=== PATIENT | female | born 1975 | race Caucasian/White ===

== ENCOUNTER 2025-04-30 12:59 | Outpatient (AMB) | payer BC, SELFPAY ==
--- NOTE | 2025-04-30 13:03 | MHC.OFFVIS ---
Vital Signs 04/30/25 13:04 Height 5 ft 7 in Weight 164 lb 10.965 oz BMI 25.8 BP 100/64 Blood Pressure Location Lt brachial Position Sitting Pulse 74 Pulse Source Pulse Oximeter Pulse Oximetry (%) 99 Oxygen Delivery Method Room Air Intake Visit Reasons: Nontoxic single thyroid nodule Intake Note: New patient present today for Nontoxic single thyroid nodule. Cook Box Filler Required: No Accompanied by: Self / Same As Patient Allergies Penicillins (PCN) Allergy (Mild, Verified 04/30/25 13:07) rash Sulfa (Sulfonamide Antibiotics) Allergy (Mild, Verified 04/30/25 13:07) rash Medication List - Last Reconciled 04/30/25 by Brigette Plunkett MD sertraline 50 mg PO DAILY valacyclovir 1,000 mg PO DAILY HPI Comments Details: 49-year-old female coming in today for initial evaluation of nontoxic multinodular goiter. Ultrasound of the thyroid, done 04/05/2025, I do not have the images but reviewed the report which showed a right mid lobe 1.3 cm solid isoechoic TR 3 nodule, and a left lower pole 1.1 cm solid hypoechoic taller than wide with irregular margin TR 5 category nodule that meets criteria for FNA. Patient currently denies heat or cold intolerance, diarrhea or constipation, hair loss, palpitation, anxiety, mood changes, low energy, changes in appearance of eyes or vision changes, tremors, increased diaphoresis or dry skin. Gained 10 lbs in 6 months. ? Patient denies any difficulty swallowing, pain on swallowing or voice changes or difficulty breathing. Patient denies any history of childhood neck radiation. Denies having ever used lithium, amiodarone or biotin supplements. Patient denies any family history of thyroid cancer or thyroid disease. Teacher 8 th grade special ed No smoking Alcohol : a glass or two of wine everyday No drug use Physical exam General: sitting comfortably in no acute distress HEENT: normocephalic/atraumatic, moist oral mucosa Neck: supple, palpable 1 cm right-sided nodule Cardiac: normal heart sounds Pulm: normal breath sounds B/L, no added breath sounds Abd: not distended, no tenderness Extremities: no edema, no signs of myxedema Labs done at [facility] ob[facility] viewed on patient's portal tsh 1.16 PFS Medical History (Updated 04/30/25 @ 13:15 by Brigette Plunkett MD) Nontoxic multinodular goiter Surgical History (Updated 04/30/25 @ 13:09 by CLARISA Hanley) History of surgical procedure on eye proper using laser History of back surgery History of breast augmentation Family History (Updated 04/30/25 @ 13:09 by CLARISA Hanley) Mother Breast cancer Father No problems noted. Social History (Updated 04/30/25 @ 13:10 by CLARISA Hanley) Alcohol intake: current Alcohol intake frequency: 0-2 drinks per day Alcohol type: wine Patient Tobacco Use Status: Never used Tobacco Physical Exam Vital Signs: Last Vital Signs Pulse 74 04/30/25 13:04 BP 100/64 04/30/25 13:04 Pulse Ox 99 04/30/25 13:04 Oxygen Delivery Method Room Air 04/30/25 13:04 BMI result Body Mass Index 25.8 Assessment & Plan Assessment & Plan (1) Nontoxic multinodular goiter: Code(s): E04.2 - Nontoxic multinodular goiter Category: Medical Plan: 49-year-old female with no family history of thyroid cancer with no personal history of head or neck radiation coming in today for initial evaluation of nontoxic multinodular goiter. Ultrasound of the thyroid, done 04/05/2025, I do not have the images but reviewed the report which showed a right mid lobe 1.3 cm solid isoechoic TR 3 nodule, and a left lower pole 1.1 cm solid hypoechoic taller than wide with irregular margin TR 5 category nodule that meets criteria for FNA. I explained that it is common to have thyroid nodules. About 95% of the time these nodules are benign. However if the nodule is > 1 cm in size or suspicious on ultrasound then a fine need aspiration biopsy is recommended. We discussed that a FNAB involves 4-5 passes with a small gauge needle and material obtained is sent off for cytology.If the cytopathology is benign then the nodule will be followed annually with repeat ultrasounds. However if it is suspicious or malignant, we will need to discuss further management. Indeterminate cytology can be further investigated with repeat FNA, genetic testing or empiric lobectomy. Malignant cytology is managed with either lobectomy or total thyroidectomy. We discussed briefly that thyroid cancer is, in most patients, an indolent disease that does not affect mortality. We will arrange for FNA left lower 1.1 cm thyroid nodule at next available opening and patient will follow up with me in clinic thereafter for results and further decision making. No compressive symptoms. Labs done at [facility] ob[facility]yn viewed on patient's portal tsh 1.16 Plan: -scheduled for FNA of the left lower 1.1 cm thyroid nodule and a follow up 2 weeks after to discuss results Plan I spent 45 minutes in reviewing the record, seeing the patient and documenting in the medical record. Orders: Orders US biopsy thyroid Today E04.2 - Nontoxic multinodular goiter Patient Instructions: We will schedule you for a left-sided thyroid nodule biopsy and a follow up 2 weeks after the biopsy to discuss results Coding Level of Care Code New Pt Level 4 (58854) Diagnoses Nontoxic multinodular goiter E04.2 Time Spent (min) 45
[2025-04-30 13:04] VITALS: BP 100/64; PULSE 74; O2SAT 99; BMI 25.8
--- OUTSIDE RECORDS SUMMARY | 2025-04-30 13:22 | XMS_ITS | Data Portability ---
Author Organization [place] [facility] Crista Guillermo [address] [place] Address [address] [place] [address] Care Team Providers Care Digital Hardware Design Engineer Name Role Phone ARNULFO CASTILLO Primary Care Provider ARNULFO CASTILLO Referring Provider [phone] Assessment Encounter Date Assessment Date Assessment LastModified by Organization Details LastModified Time 01/08/2025 01/08/2025 About a year of nonspecific right anterior knee pain. I suspect this is patellofemoral in origin, she may have fat pad impingement or medial plica. I think less likely would be a meniscus tear. I went over my findings with her at length. I reviewed treatment options. She is very active, already has completed and remain compliant with a strengthening program. I doubt that physical therapy will provide meaningful benefit. She is interested in an MRI and I think that is reasonable to pursue. I will see her back to go over the results. In the interim she will let symptoms be her guide with regards to activity. Questions invited and answered. Not available 01/08/2025 20:04:53 01/29/2025 01/29/2025 I reviewed my findings with her. We looked at the MRI together. Thankfully no evidence of any obvious significant meniscal tear. I think most likely she is having some anterior knee pain related to her mild retropatellar chondrosis, fat pad impingement, and potentially plica syndrome. I went over all of this with her. We decided on treating conservatively starting with physical therapy. If no improvement could consider a cortisone injection. Last option would be an arthroscopy with chondroplasty, fat pad debridement, plica resection. She will let symptoms be her guide with regards to activity moving forward. Icing protocol reviewed. We will leave follow-up open-ended for the moment, she knows I am available to her if questions arise. Greater than 30 minutes was spent with the encounter today, including face to face time with the patient, documentation, review of records/imaging if applicable, and coordination of care. PRIOR: About a year of nonspecific right anterior knee pain. I suspect this is patellofemoral in origin, she may have fat pad impingement or medial plica. I think less likely would be a meniscus tear. I went over my findings with her at length. I reviewed treatment options. She is very active, already has completed and remain compliant with a strengthening program. I doubt that physical therapy will provide meaningful benefit. She is interested in an MRI and I think that is reasonable to pursue. I will see her back to go over the results. In the interim she will let symptoms be her guide with regards to activity. Questions invited and answered. [email or web address] Not available 01/29/2025 17:24:18 Plan of Treatment Reminders Order Date Submit Date Provider Last Modified By Organization Details Last Modified Time Details Appointments None recorded. Lab None recorded. Referral None recorded. Procedures None recorded. Surgeries None recorded. Imaging XR, knee, 3 view 2024 025 [email or web address] [facility], [address], [address] [facility], [place], [address], 17:38:54 MRI, knee, w/o contrast 2024 025 [email or web address] Not available 11:55:26 Medication Orders None recorded. Patient TargetsNo targets recorded. Patient Instructions Encounter Date Encounter Id Patient Instructions Last Modified By Organization Details Last Modified Time 01/08/2025 [id number] views of the right knee were obtained on 01/08/2025 in the [place] office. Patella tracks centrally. Joint spaces are well-maintained. No obvious soft tissue calcifications. Findings: Well-maintained joint spaces right knee. No acute fracture appreciated. Interpreted by: MD daysi [email or web address] Not available 01/08/2025 14:26:46 01/29/2025 [id number] views of the right knee were obtained on 01/08/2025 in the [place] office. Patella tracks centrally. Joint spaces are well-maintained. No obvious soft tissue calcifications. Findings: Well-maintained joint spaces right knee. No acute fracture appreciated. Interpreted by: Jagdeep Farley MD Not available 01/28/2025 16:56:28 Reason for Referral None Reported. Results Created Date Observation Date Name Description Value Unit Range Abnormal Flag Note LastModifiedBy Organization Detail LastModifiedTime 01/20/2001/17/2025 MRI, knee, w/o contr ast No observ ation record ed. [email or web address] [facility] [address] [place], [address], 01/20/2025 11:00:12 Result Notes None recorded. Problems Name Problem SNOMED Code Status Onset Date Resolution Date Notes Provider Name and Address Organization Details Recorded Time Pain of right knee joint 195978780019501 Active 2024 Jagdeep Farley MD [address], [place], [address], [place] [facility] 16:56:27 Synovial plica syndrome of right knee 333727314502775 Active 2024 Jagdeep Farley MD [address], [place], [address], [place] [facility] 17:24:25 Problem Notes None recorded. Procedures Surgical History Date Name Laterality Status Provider Name and Address Organization Details Recorded Time augmentation mammoplasty completed [facility] 01/08/2025 14:15:08 [facility] 01/08/2025 14:15:27 laser assisted in situ keratomileusis completed [facility] 01/08/2025 14:16:10 Imaging Results None recorded. Procedure Notes None recorded. Medical Equipment None Reported. Allergies Allergen ID Allergen Name Allergen Category Reaction Reaction Severity Criticality Documentation Date Start Date Code Code System Note Provider Name and Address Organization Details Recorded Time 65655 Substance with sulfonami de structure and antibacte rial mechanism of action (substanc e) medicatio n Not available Not available Not available 01/08/2025 66737 8003 SNOMED Ana Gee null, [place] [facility] 14:13:07 97668 Product containin g penicilli n (product) medicatio n Not available Not available Not available 01/08/2025 89584 8001 SNOMED Ana Gee null, [place] [facility] 14:13:14 Medications Name Sig Start Date Stop Date Status Note LastModified by Organization Details LastModified Time valacyclovir 1 gram tablet TAKE 1 TABLET BY MOUTH EVERY DAY active Not Available Not Available No t Available sertraline 50 mg tablet TAKE 1 TABLET BY MOUTH EVERY DAY active Not Available Not Available No t Available Vitals Date Recorded Body height Body mass index (BMI) Body weight Provider Name and Address Organization Details Last Updated DateTime 01/08/2025 170.18 cm 24.7 kg/m2 [address] [place] [facility] 01/08/2025 14:13:25 Date Recorded Body height Body mass index (BMI) Body weight Provider Name and Address Organization Details Last Updated DateTime 01/29/2025 170.18 cm 24.9 kg/m2 [address]2798.[address] [place] [facility] 01/29/2025 16:05:03 Social History None recorded. Functional Status Question Answer Note LastModified by Organizat ion Details LastModified Time How many times per week do you consume alcohol? 7-12 [email or web address] Information not available 01/08/2025 Do you use any illicit or recreational drugs? No [email or web address] Information not available 01/08/2025 Do you or have you ever used any other forms of tobacco or nicotine? No [email or web address] Information not available 01/08/2025 What is your level of alcohol consumption? Heavy [email or web address] Information not available 01/08/2025 Are you currently employed? Yes [email or web address] Information not available 01/08/2025 What is your occupation? teacher [email or web address] Information not available 01/08/2025 Mental Status None recorded. Family History Nothing Reported. Medical History Condition Response Coronary Artery Disease N Gout N Hyperthyroidism N MRSA N Blood Transfusion N Emphysema N Hypothyroidism N COPD N Depression N Pacemaker N Vascular Disease N Gastrointestinal Disease N Anxiety Disorder N Autoimmune disease N Arthritis N Cancer N Stroke N High Cholesterol N Neurologic Disorder N Liver Disease N Organ Transplant N Arrhythmia N Rheumatoid Arthritis N Fibromyalgia N Kidney Disease N Allergies/Hayfever N Adverse Reaction to Anesthesia N Thyroid Problems N Anemia N Brain Injury N Heart Attack ([place]) N Osteopenia N Diabetes N Bleeding Disorder N Seizures/Epilepsy N AIDS/HIV N Congestive Heart Failure (CHF) N Asthma N Amputation N Reflux/GERD N Sleep Apnea N Hepatitis N Aneurysm N Heart Disease N Pulmonary Embolism N Hypertension N Osteoporosis N Gynecological HistoryNo gynecological history recorded. Obstetrics History GPAL:G 0 P 0 0 0 0 Past Encounters Encounter ID Performer Location Encounter Start Date Encounter Closed Date Diagnosis/Indication Diagnosis SNOMED-CT Code Diagnosis ICD10 Code Diagnosis Note [id number] Jagdeep Farley MD [place] [address] 01/08/2025 13:58:42 01/08/2025 14:54:12 Pain of right knee joint 9806683814 27456 M25.561 [id number] Jagdeep Farley MD [place] [address] 01/29/2025 16:00:30 01/29/2025 16:22:05 Pain of right knee joint 6009641726 58718 M25.561 Synovial p lica syndrome of right knee 0121040480 55658 M67.51 Health Concerns Section Related Observation LastModified by Organization Detai ls LastModified Time None Recorded Concern Status LastModified by Organization Details LastModified Time None Recorded Advance Directives Directive None Recorded Payers Insurance Date Sequence Insurance Name Policy Number Policy Hunt Covered Member ID Hunt Member ID Guarantor Name 01/30/2025 1 [place] [id number] Nolvia Gan [id number] Nolvia Gan Notes Date Note Type Note Provider Name and Address Organization Details Recorded Time 01/08/2025 text/html Very pleasant 49-year-old female here for an evaluation of persistent right knee pain. This has been going on for at least a year. She tells me she has been very active over her life, a consistent runner for many years. This is predominantly on flat ground. She also does consistent weight training. About a year ago without specific trauma she began to develop sharp anterior knee pain with activity. This could be with running, playing tennis, or getting out of a sand trap while playing golf. She has had a couple episodes where she actually had to stop activity, but generally when it happens she is able to manage and just modify and push through. No significant swelling noted. She denies yokasta locking but does feel some mechanical catching. She denies radiating pain to the hip or ankle. She denies any contralateral symptoms. At times she notes a baseline ache around the knee. She has not had physical therapy. She has never had injections. She has not had imaging. She reports she is healthy. 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 Jagdeep Farley MD [address], [place], [address], [place] [facility] 01/08/2025 20:05:33 01/29/2025 text/html Patient returns for reevaluation of her right knee. She did have her MRI done and brings it in today for review. She reports that since her last visit she has had much less of the sharp shooting pain. In general she has been careful with activity. She played paddle this weekend and had some generalized discomfort in the knee but nothing that has kept her out of participating. PRIOR:Very pleasant 49-year-old female here for an evaluation of persistent right knee pain. This has been going on for at least a year. She tells me she has been very active over her life, a consistent runner for many years. This is predominantly on flat ground. She also does consistent weight training. About a year ago without specific trauma she began to develop sharp anterior knee pain with activity. This could be with running, playing tennis, or getting out of a sand trap while playing golf. She has had a couple episodes where she actually had to stop activity, but generally when it happens she is able to manage and just modify and push through. No significant swelling noted. She denies yokasta locking but does feel some mechanical catching. She denies radiating pain to the hip or ankle. She denies any contralateral symptoms. At times she notes a baseline ache around the knee. She has not had physical therapy. She has never had injections. She has not had imaging. She reports she is healthy. 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 Jagdeep Farley MD [address], [place], [address], [place] [facility] 01/29/2025 17:24:36 OBGyn Episode No OBEpisode recorded.
== END 2025-04-30 13:42 | disposition home or self-care (01) ==
LOC: HO.ENCR 13:00
PROVIDERS: Visit Provider Student in an Organized Health Care Education/Training Program
DX: E04.2 Nontoxic multinodular goiter (principal)
CPT/HCPCS: 99204

== ENCOUNTER 2025-05-23 08:01 | Outpatient (REF) | payer BC, SELFPAY ==
--- OUTSIDE RECORDS SUMMARY | 2025-05-23 08:04 | XMS_ITS | Data Portability ---
Author Organization [place] [facility] Crista Guillermo [facility] [place] Address [address] [place] [address] Care Team Providers Care Process Improvement Manager Name Role Phone ARNULFO CASTILLO Primary Care Provider [phone] ARNULFO CASTILLO Referring Provider Assessment Encounter Date Assessment Date Assessment LastModified [...] 3 view 2024 025 [email or web address] [facility], [address], [address] [facility], [place], [address], 17:38:54 MRI, knee, w/o contrast 2024 025 [email or web address] 2 Not available 11:55:26 Medication Orders None recorded. Patient TargetsNo targets recorded. Patient Instructions Encounter Date Encounter Id Patient Instructions Last Modified By Organization Details Last Modified Time 01/08/2025 [id number] views of the right knee were obtained on 01/08/2025 in the [place] office. Patella tracks centrally. Joint spaces are well-maintained. No obvious soft tissue calcifications. Findings: Well-maintained joint spaces right knee. No acute fracture appreciated. Interpreted by: MD daysi [email or web address] Not available 01/08/2025 14:26:46 01/29/2025 [id number] views of the right knee were obtained on 01/08/2025 in the [place] office. Patella tracks centrally. Joint spaces are [...] observ ation record ed. [email or web address] [facility] [address] [place], [address], 01/20/2025 11:00:12 Result Notes None recorded. Problems Name Problem SNOMED Code Status Onset Date Resolution Date Notes Provider Name and Address Organization Details Recorded Time Pain of right knee joint 420923533766376 Active 2024 Jagdeep Farley MD [address], [place], [address], [place] [facility] 16:56:27 Synovial plica syndrome of right knee 831506728552615 Active 2024 Jagdeep Farley MD [address], [place], [address], [place] [facility] 17:24:25 Problem Notes None recorded. Procedures Surgical History Date Name Laterality Status Provider Name and Address Organization Details Recorded Time augmentation mammoplasty completed [facility] 01/08/2025 14:15:08 procedure [facility] back [facility] 01/08/2025 14:15:27 laser assisted in situ keratomileusis completed [facility] 01/08/2025 14:16:10 Imaging Results None recorded. Procedure Notes None recorded. Medical Equipment None Reported. Allergies Allergen ID Allergen Name Allergen Category Reaction Reaction Severity Criticality Documentation Date Start Date Code Code System Note Provider Name and Address Organization Details Recorded Time 29702 Substance with sulfonami de structure and antibacte rial mechanism of action (substanc e) medicatio n Not available Not available Not available 01/08/2025 90297 8003 SNOMED Ana Gee null, [place] [facility] 14:13:07 85153 Product containin g penicilli n (product) medicatio n Not available Not available Not available 01/08/2025 40211 8001 SNOMED Ana Gee null, [place] [facility] 14:13:14 Medications Name Sig Start Date [...] Updated DateTime 01/08/2025 170.18 cm 24.7 kg/m2 [address]267.[address] [facility] 01/08/2025 14:13:25 Date Recorded Body height Body mass index (BMI) Body weight Provider Name and Address Organization Details Last Updated DateTime 01/29/2025 170.18 cm 24.9 kg/m2 [address]2596.[address] [facility] 01/29/2025 16:05:03 Social History None recorded. Functional Status Question Answer Note LastModified by Organizat ion Details LastModified Time How many times per week do you consume alcohol? 7-12 [email or web address] Information not available 01/08/2025 Do you use any illicit or recreational drugs? No [email or web address] Information not available 01/08/2025 Do you or have you ever used any other forms of tobacco or nicotine? No [email or web address] Information not available 01/08/2025 What is your level of alcohol consumption? Heavy [email or web address] Information not available 01/08/2025 Are you currently employed? Yes [email or web address] Information not available 01/08/2025 What is your occupation? teacher [email or web address] Information not available 01/08/2025 Mental Status None [...] Anemia N Brain Injury N Heart Attack ([place]) N Osteopenia N Diabetes N Bleeding Disorder [...] SNOMED-CT Code Diagnosis ICD10 Code Diagnosis Note [id number] Jagdeep Farley MD [place] [address] 01/08/2025 13:58:42 01/08/2025 14:54:12 Pain of right knee joint 8508656694 12932 M25.561 [id number] Jagdeep Farley MD [place] [address] 01/29/2025 16:00:30 01/29/2025 16:22:05 Pain of right knee joint 9894577709 23271 M25.561 Synovial p lica syndrome of right knee 7106018005 18475 M67.51 Health Concerns Section Related Observation LastModified by Organization Detai ls LastModified Time None Recorded Concern Status LastModified by Organization Details LastModified Time None Recorded Advance Directives Directive None Recorded Payers Insurance Date Sequence Insurance Name Policy Number Policy Hunt Covered Member ID Hunt Member ID Guarantor Name 01/30/2025 1 [place] [id number] Nolvia Gan [id number] Nolvia Gan Notes Date Note Type [...] 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 Jagdeep Farley MD [address], [place], [address], [place] [facility] 01/29/2025 17:24:36 OBGyn Episode No OBEpisode recorded.
--- OUTSIDE RECORDS SUMMARY | 2025-05-23 08:04 | XMS_ITS ---
Author Name [facility] Organization Unknown History of Medication Use Medication Directions Dispensed Refills Start Date End Date Stat us sertraline 50 mg tablet TAKE 1 TABLET BY MOUTH EVERY DAY active valacyclovir 1 gram tablet TAKE 1 TABLET BY MOUTH EVERY DAY active Allergies Allergen Reaction Severity Comment Documented Date Source Statu s PENICILLINS [facility] SULFA (SULFONAMIDE ANTIBIOTICS) [facility] Problems Problem Status Onset Date Problem Type Date of Resoluti on Source Synovial plica syndrome of right knee active 2025-01-29 ProblemAct [facility] Pain of right knee joint active 2025-01-28 ProblemAct [facility] Encounters Encounter Type Encounter Reason Primary Diagnosis Location Date Ambulatory [facility] [place] 01/30/2025 Ambulatory [facility] 01/29/2025 Ambulatory [facility] 01/29/2025 Ambulatory [facility] [place] 01/09/2025 Ambulatory [facility] 01/08/2025 Ambulatory [facility] [place] 01/08/2025 [facility]ulatory [facility] [place] 01/08/2025 Ambulatory [facility] [place] 01/08/2025 Ambulatory [facility] [place] 01/08/2025 Ambulatory [facility] 01/08/2025 Ambulatory [facility] 01/08/2025 Ambulatory [facility] 01/05/2025 Ambulatory [facility] 12/13/2024
--- NOTE | 2025-05-23 08:32 | PM.PROC ---
Brief Operative Note Date of procedure: 05/23/25 Pre-op diagnosis: left lower 1.1 cm thyroid nodule FNA biopsy Post-op diagnosis: same Procedure: THYROID FINE NEEDLE ASPIRATION PROCEDURE NOTE ? PROCEDURE PERFORMED: Ultrasound-guided FNA of thyroid nodule ? OPERATORS: Dr. Brigette Plunkett ? INDICATION: left lower 1.1 cm thyroid nodule FNA biopsy ; FNA performed to assess for malignancy ? DESCRIPTION OF PROCEDURE: The indications for FNA (to assess for malignancy) were reviewed with the patient in detail. Potential complications (e.g., bleeding, infection, damage to local structures, absence of clear diagnosis after FNA) were reviewed. Alternatives to FNA including conservative observation or surgery were described. The patient understood and agreed to proceed. This was documented by the signing of the written informed consent form. A time-out was performed to confirm the patient's identity and the site of planned FNA. The nodule of interest was identified using ultrasound (14 MHz linear array probe). The site of FNA was then draped in the usual fashion and carefully cleaned and prepared using alcohol swabs. The skin at the previously-identified site of needle insertion was iced and sprayed with numbing spray. Under ultrasound guidance, 4__ passes were performed using a 1.5-inch, 25-gauge needle, and sample was obtained via capillary action. The needle tip was clearly visualized to be within the nodule at the time of sampling for _4_ of _4_ passes The patient tolerated the procedure well. There were no immediate complications. A small adhesive bandage was applied, and the patient was advised to take acetaminophen (rather than NSAIDs) for any discomfort and to report any signs of inflammation/infection or marked swelling. IMPRESSION: Technically successful ultrasound-guided fine needle aspiration of left lower 1.1 cm thyroid nodule FNA biopsy . Notably the nodule is solid , hypoechoic , regular, not taller than wide but does have some punctate echogenic foci in it , consistent with TR 5. I also looked at her right thyroid lobe briefly which did not show any nodules. PLAN: The patient was advised that I will provide follow-up regarding the cytology result and any subsequent plans. Brigette Plunkett MD Endocrinology Attending Condition: stable Disposition: same day
== END 2025-05-23 08:02 | disposition home or self-care (01) ==
LOC: HO.US 08:01
PROVIDERS: PCP Nurse Practitioner Family; Visit Provider Student in an Organized Health Care Education/Training Program
DX: E04.2 Nontoxic multinodular goiter (principal)
CPT/HCPCS: 10005; 88173; 88305

== ENCOUNTER → 2025-05-23 08:01 | Outpatient (BNV) | payer BC, SELFPAY | PROVIDERS: PCP Nurse Practitioner Family; Visit Provider Student in an Organized Health Care Education/Training Program | DX: E04.1 Nontoxic single thyroid nodule (principal) | CPT/HCPCS: 10005 ==

== ENCOUNTER 2025-06-06 13:38 | Outpatient (AMB) | payer BC, SELFPAY ==
--- NOTE | 2025-06-06 13:39 | MHC.OFFVIS ---
Vital Signs 06/06/25 13:40 Height 5 ft 7 in Weight 165 lb 5.547 oz BMI 25.9 BP 112/68 Blood Pressure Location Rt brachial Position Sitting Pulse 67 Pulse Source Pulse Oximeter Pulse Oximetry (%) 96 Oxygen Delivery Method Room Air Intake Visit Reasons: Biopsy f/u Intake Note: Patient present today for Thyroid Biopsy Results. 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 Ultrasound of the thyroid, done 04/05/2025, I do not have the images but reviewed the report which showed a right mid lobe 1.3 cm solid isoechoic TR 3 nodule, and a left lower pole 1.1 cm solid hypoechoic taller than wide with irregular margin TR 5 category nodule that meets criteria for FNA. Patient currently denies heat or cold intolerance, diarrhea or constipation, hair loss, palpitation, anxiety, mood changes, low energy, changes in appearance of eyes or vision changes, tremors, increased diaphoresis or dry skin. Gained 10 lbs in 6 months. ? Patient denies any difficulty swallowing, pain on swallowing or voice changes or difficulty breathing. Patient denies any history of childhood neck radiation. Denies having ever used lithium, amiodarone or biotin supplements. Patient denies any family history of thyroid cancer or thyroid disease. Teacher 8 th grade special ed No smoking Alcohol : a glass or two of wine everyday No drug use Interval history 05/23/2025: Status post FNA of the left lower pole 1.1 cm nodule which came back as nondiagnostic, Bowie category 1. On my brief ultrasound during the procedure, the right side did not actually show any nodules. In the left lower pole nodule was solid hypoechoic, regular margins, well-defined, not taller than wide, but did have some punctate echogenic foci in it, classifying as a TR 5 nodule. Physical exam General: sitting comfortably in no acute distress HEENT: normocephalic/atraumatic, moist oral mucosa Neck: supple Cardiac: normal heart sounds Pulm: normal breath sounds B/L, no added breath sounds Abd: not distended, no tenderness Extremities: no edema, no signs of myxedema Labs done at [facility] viewed on patient's portal tsh 1.16 [facility] Medical History (Updated 04/30/25 @ 13:15 by Brigette Plunkett MD) Nontoxic multinodular goiter Surgical History (Updated 06/06/25 @ 13:46 by CALRISA Bartholomew) Hx of ultrasound guided needle biopsy History of surgical procedure on eye proper using laser History of back surgery History of breast augmentation Family History (Updated 04/30/25 @ 13:09 by CLARISA Hanley) Mother Breast cancer Father No problems noted. Social History (Updated 04/30/25 @ 13:10 by CLARISA Hanley) Alcohol intake: current Alcohol intake frequency: 0-2 drinks per day Alcohol type: wine Patient Tobacco Use Status: Never used Tobacco Physical Exam Vital Signs: Last Vital Signs Pulse 67 06/06/25 13:40 BP 112/68 06/06/25 13:40 Pulse Ox 96 06/06/25 13:40 Oxygen Delivery Method Room Air 06/06/25 13:40 BMI result Body Mass Index 25.9 Assessment & Plan Assessment & Plan (1) Nontoxic multinodular goiter: Code(s): E04.2 - Nontoxic multinodular goiter Category: Medical Plan: 49-year-old female with no family history of thyroid cancer with no personal history of head or neck radiation coming in today for initial evaluation of nontoxic multinodular goiter. Ultrasound of the thyroid, done 04/05/2025, I do not have the images but reviewed the report which showed a right mid lobe 1.3 cm solid isoechoic TR 3 nodule, and a left lower pole 1.1 cm solid hypoechoic taller than wide with irregular margin TR 5 category nodule that meets criteria for FNA. 05/23/2025: Status post FNA of the left lower pole 1.1 cm nodule which came back as nondiagnostic, Bowie category 1. On my brief ultrasound during the procedure, the right side did not actually show any nodules. In the left lower pole nodule was solid hypoechoic, regular margins, well-defined, not taller than wide, but did have some punctate echogenic foci in it, classifying as a TR 5 nodule. I discussed with the patient that nondiagnostic results yield a 5-20% risk malignancy. At this point her options are either repeating the biopsy in 3 months and I discussed with her that usually on a 2nd try there is a 60-80% chance of getting a diagnostic result. Other option is to monitor the nodule with surveillance ultrasounds given relatively small size. But patient understands there is a possible risk of malignancy in that case which could rarely but possibly spread and cause mortality. At this point she feels comfortable with surveillance ultrasounds. And would like to opt for that. No compressive symptoms. Labs done at [facility] 2024 viewed on patient's portal tsh 1.16 Plan: -repeat thyroid ultrasound ordered for May 2026 with follow up in June 2026 -TSH with a reflex free T4 to be done prior to follow up in 1 year -discussed that if she has any compressive symptoms such as worsening swallowing, changes in voice, pressure in neck or any swelling in the neck she can always contact us sooner. Plan See above Orders: Orders US thyroid 05/06/26 E04.2 - Nontoxic multinodular goiter TSH reflex Free T4 05/06/26 E04.2 - Nontoxic multinodular goiter Patient Instructions: Do ultrasound of the thyroid in May 2026, someone we will call you to schedule this, please make sure this is done a few weeks prior to your next follow up with me in 1 year Do thyroid blood work a few days prior to your next follow up, orders have been placed Follow up in 1 year in June 2026 to discuss results Coding Level of Care Code Est Pt Level 3 (48249) Diagnoses Nontoxic multinodular goiter E04.2
[2025-06-06 13:40] VITALS: BP 112/68; PULSE 67; O2SAT 96; BMI 25.9
== END 2025-06-06 14:07 | disposition home or self-care (01) ==
LOC: HO.ENCR 13:38
PROVIDERS: Visit Provider Student in an Organized Health Care Education/Training Program
DX: E04.2 Nontoxic multinodular goiter (principal)
CPT/HCPCS: 99213